=== PATIENT | female | born 1960 | race Asian ===

== ENCOUNTER 2025-02-21 15:41 | Emergency (ER) | payer MEDICAID, SELFPAY ==
[2025-02-21 15:42] VITALS: BMI 22.8
--- NOTE | 2025-02-21 15:45 | EKG_ITS ---
[facility] Test Date: 2025-02-21 Pat Name: KING BLAKE Department: Room: - Gender: Female Registered Midwife: : 1960 Requested By: ED Temporary Provider Order Number: [id number] Reading MD: ED Temporary Provider Measurements Intervals [place] Rate: 92 P: 68 AL: 144 QRS: -15 QRSD: 80 T: 78 QT: 339 QTc: 419 Interpretive Statements SINUS RHYTHM POSSIBLE ANTERIOR MYOCARDIAL INFARCTION , OF INDETERMINATE AGE [30 ms Q WAVE IN V3/V4, OR R < 0.2 mV IN V4] Compared to ECG 08/29/2023 17:09:31 Atrial abnormality no longer present Left-axis deviation no longer present Myocardial infarct finding still present /store/S0/[id number]/ecg/[id number].pdf
[2025-02-21 15:58] VITALS: BP 161/85; PULSE 92; RESP 18; TEMP 36.3; O2SAT 96
--- NOTE | 2025-02-21 16:03 | PD.EDRME ---
Rapid Medical Screening Exam RME Arrival date/time: 02/21/25 15:41 Chief Complaint: Chest Pain Time Seen by Provider: 02/21/25 15:59 RME Narrative: 64-year-old female past medical history of diabetes, high cholesterol, hypertension, CAD unknown prior heart catheterization presents to the ER complaining of chest pain, lightheadedness for the past week along with 5 falls which is abnormal for her sent in by her PCP because the glucose was 415 in the clinic. I briefly performed a screening evaluation to initiate work-up and expedite care. Complete history, physical exam, and plan of care is deferred to the provider in the main ED. Exam: Head: Normocephalic, atraumatic. Respiratory: Normal effort. No respiratory distress or accessory muscle use. Neuro: Speech normal. Skin: Warm, dry, normal color. Psych: Pleasant. Normal affect. Cooperative. Clinical Impression: Hyperglycemia
--- NOTE | 2025-02-21 16:04 | XR_ITS ---
Upright PA and lateral chest 02/21/2025 at 412 Comparison 08/29/2023 INDICATION: Chest pain 2 weeks FINDINGS: There is mild osteoporosis in the skeleton lungs and pleural space are clear. There is slight cardiomegaly noted, the mediastinum appears normal IMPRESSION: 1. Moderate cardiomegaly is present unchanged. 2. Suspect mild generalized osteoporosis 3 otherwise negative chest
[2025-02-21 16:39] LABS: Basophils # (Auto) 0.0 Thou/mm3 (0.0-0.2); Basophils % (Auto) 0 % (0-2.5); Eosinophils # (Auto) 0.2 Thou/mm3 (0.0-0.5); Eosinophils % (Auto) 3 % (0-10); Hematocrit 37.6 % (36.0-46.0); Hemoglobin 11.9 g/dL (12.0-16.0); Immature Granulocytes Auto 0.02 Thou/mm3 (0.00-0.00); Lymphocytes # (Auto) 1.3 Thou/mm3 (1.0-4.8); Lymphocytes % (Auto) 21 % (10-50); Mean Corpuscular HGB Conc 31.6 g/dl (31.0-37.0); Mean Corpuscular Hemoglobin 29.8 pg (25.0-35.0); Mean Corpuscular Volume 94 fL (80-100); Monocytes # (Auto) 0.6 Thou/mm3 (0.0-0.8); Monocytes % (Auto) 10 % (0-12); Neutrophils # (Auto) 4.1 Thou/mm3 (1.8-7.7); Neutrophils % (Auto) 65 % (37-80); Nucleated Red Blood Cell # 0.00 Thou/mm3 (0.00-0.00); Nucleated Red Blood Cell % 0 /100 WBC (0); Platelet Count 177 Thou/mm3 (140-440); RDW Standard Deviation 46.6 fL (36.4-46.3); Red Blood Count 3.99 Miln/mm3 (4.00-5.20); White Blood Count 6.3 Thou/mm3 (3.6-11.0)
[2025-02-21 16:59] LABS: B-Type Natriuretic Peptide 225 pg/mL (0-100); INR 0.9 (0.9-1.3); Prothrombin Time 9.9 Seconds (9.0-12.2)
[2025-02-21 17:05] LABS: Alanine Aminotransferase 12 U/L (10-49); Albumin, Serum 4.2 gm/dL (3.4-4.8); Albumin/Globulin Ratio 1.7 (1.2-2.2); Alkaline Phosphatase 118 U/L (46-116); Anion Gap 10 (7-16); Aspartate Amino Transferase 13 U/L (0-34); BUN/Creatinine Ratio 16 Ratio (12-20); Bilirubin,Total 0.4 mg/dL (0.3-1.2); Blood Urea Nitrogen 16 mg/dL (9-23); Calcium 9.2 mg/dL (8.3-10.6); Calcium (Corrected) 9.2 mg/dL (8.5-10.1); Carbon Dioxide 28.9 mMol/L (20.0-31.0); Chloride 103 mMol/L (98-107); Creatinine (Component) 1.0 mg/dL (0.6-1.3); Estimated Creatinine Clearance 43.8 mL/min (>60); Globulin 2.5 gm/dL (2.3-3.5); Lipase 44 U/L (12-53); Potassium 5.2 mMol/L (3.4-5.1); Sodium 142 mMol/L (136-145); Total Protein 6.7 gm/dL (5.7-8.2); Troponin I < 0.020 ng/mL (0.0-0.045); eGFR > 60 See Note
[2025-02-21 17:15] LABS: Osmolality,Calculated 305 (275-295)
[2025-02-21 17:17] LABS: Glucose 482 mg/dL (74-106)
[2025-02-21 18:03] LABS: HCG,Qualitative Serum Positive
--- NOTE | 2025-02-21 18:29 | PD.EDCHEST ---
ED Chest Pain RME/HPI General Chief Complaint: Chest Pain Stated Complaint: CHEST PAIN, HIGH BLOOD PRESSURE Time Seen by Provider: 02/21/25 15:59 Arrival date/time: 02/21/25 15:41 RME / HPI RME / HPI narrative: 64-year-old female past medical history of diabetes, high cholesterol, hypertension, CAD unknown prior heart catheterization presents to the ER complaining of chest pain, lightheadedness for the past week along with 5 falls which is abnormal for her sent in by her PCP because the glucose was 415 in the clinic. I briefly performed a screening evaluation to initiate work-up and expedite care. Complete history, physical exam, and plan of care is deferred to the provider in the main ED. See MDM for Dr. Walker's HPI documentation. Related Data Home Medications ?Medication ?Instructions ?Recorded ?Confirmed carbidopa ER 50 mg-levodopa 200 mg 1 tab PO BID 08/30/23 09/09/23 tablet,extended release gabapentin 600 mg tablet 600 mg PO TID 08/30/23 09/09/23 pantoprazole 40 mg tablet,delayed 40 mg PO QDAY 08/30/23 09/09/23 release (Protonix) sitagliptin phosphate 50 1 tab PO BID 08/30/23 09/09/23 mg-metformin 1,000 mg tablet (Janumet) insulin detemir U-100 100 unit/mL 20 unit subcut DAILY 08/31/23 09/09/23 (3 mL) subcutaneous pen (Levemir FlexPen) Previous Rx's ?Medication ?Instructions ?Recorded apixaban 5 mg tablet (Eliquis) 5 mg PO BID 30 days #60 tabs 08/31/23 aspirin 81 mg tablet,delayed 81 mg PO QDAY 30 days #30 tabs 08/31/23 release atorvastatin 40 mg tablet 40 mg PO HS 30 days #30 tabs 08/31/23 blood-glucose sensor (Dexcom G7 #3 ea 08/31/23 Sensor device) blood-glucose,internist medical doctor md,cont #1 ea 08/31/23 (Dexcom G7 Manager Ccu) metoprolol succinate 25 mg 25 mg PO QDAY 30 days #30 tabs 08/31/23 tablet,extended release 24 hr Allergies Allergy/AdvReac Type Severity Reaction Status Date / Time hydrocodone Allergy Mild Dizziness Verified 02/21/25 15:41 acetaminophen AdvReac Severe Difficulty Verified 02/21/25 15:41 Breathing Review of Systems Review of Systems Systems Reviewed: All systems reviewed, normal except as documented Past Medical History Past Medical History NEUROLOGIC: Positive Parkinson's Disease (Dx'd 2 years ago) CARDIAC: Positive Cardiac Disorders and Hypertension; Negative Congestive Heart Failure RESPIRATORY: Negative Chronic Obstructive Pulmonary Disease (COPD) GASTROINTESTINAL: Positive Gastroesophageal Reflux Disease (Sometimes) GENITOURINARY: Negative Genitourinary Disorders or Renal Disease ENDOCRINE: Positive Diabetes Mellitus Type 2; Negative Diabetes Mellitus Type 1 HEMATOLOGIC: Negative Blood Disorders PSYCHO/SOCIAL: Negative Depression or Anxiety OTHER HISTORY: Positive Falls; Negative Anesthesia Reactions Surgical History SURGICAL: Positive Section Social History SMOKING STATUS: Never smoker SECOND HAND EXPOSURE: No ED Exam Narrative Physical exam: See [facility] for Dr. Walker's physical exam documentation. Course Course Course Narrative: CXR is ordered for determining the etiology of chest pain. Quality Measures none Orders Category Date Time Status Continuous EKG monitoring NOW Care 02/21/25 16:04 Active Continuous Pulse Oximetry NOW Care 02/21/25 16:04 Active EKG (ED ONLY) *Do not use* NOW Care 02/21/25 15:45 Completed EKG (ED ONLY) *Do not use* NOW Care 02/21/25 16:04 Completed EKG (ED Only) Stat Exams 02/21/25 15:45 Draft EKG (ED Only) Stat Exams 02/21/25 16:04 Ordered XR chest 2V Stat Exams 02/21/25 16:04 Completed B-Type Natriuretic Peptide Stat Lab 02/21/25 16:32 Completed Beta HCG,Quantitative Stat Lab 02/21/25 18:29 Ordered CBC Stat Lab 02/21/25 16:32 Completed Comprehensive Metabolic Panel Stat Lab 02/21/25 16:32 Completed HCG,Qualitative Serum Stat Lab 02/21/25 16:32 Completed INR [Prothrombin Time with INR] Stat Lab 02/21/25 16:32 Completed Lipase Stat Lab 02/21/25 16:32 Completed Troponin I Stat Lab 02/21/25 16:32 Completed Sodium Chloride 0.9% 1000 ml [Ns] 1,000 ml Med 02/21/25 16:04 Discontinued IV 999 mls/hr Vital Signs Vital signs: Vital Signs Temperature 97.4 F 02/21/25 15:58 Pulse Rate 92 02/21/25 15:58 Respiratory Rate 18 02/21/25 15:58 Blood Pressure 161/85 H 02/21/25 15:58 Pulse Oximetry (%) 96 02/21/25 15:58 Oxygen Delivery Method Room Air 02/21/25 15:58 Chest Pain MDM Narrative MDM Narrative:: This section includes all my notes and documentations, including HPI, PE, and ED course. Long Walker MD HPI: 64-year-old female ROS: All negative except as documented in HPI. Physical Exam: General: Alert and oriented. No acute distress when remaining still. Eyes: Conjunctivae and lids clear. ENT: No nasal congestion. Neck: Supple. Heart: RRR. Lungs: No respiratory distress. Good air movement. No rhonchi, wheezing, rales. Abdomen: Soft and nontender. Normal bowel sounds. No distension. No rebound or guarding. Back: No CVA tenderness. Skin: Warm and dry. Neuro: Alert and oriented X 3. I reviewed all diagnostic test results. My interpretation of the EKG is My interpretation of the chest x-ray is cardiomegaly. My review of the CT report is Blood tests and urine tests At this point, diagnoses include Treatment here included Significant improvement Not yet done: I discussed the case with our hospitalist. About the presentation and exam and diagnostics and treatments here. And need of further care in the hospital. Will accept the patient. Not yet done: Based on my best medical judgment, made decision no further evaluation or treatment indicated at this time. Patient understands and agrees to the discharge instructions customized and printed, see below. Long Walker MD Patient data External records reviewed:: [facility] previous records (Per chart review, patient was admitted here on 08/29/23 for elevated troponin.) Clinical information provided by:: patient Social determinants that could affect healthcare access:: none Patient has the following chronic illnesses:: Parkinson's, DM, HTN, HLD How is presenting disease/condition affected by chronic disease/condition?: exacerbated by Evaluation data The following diagnostics were reviewed and interpreted by me:: lab results, radiology exam(s) and EKG tracing(s) Lab and/or radiology exams considered but not ordered:: none Medications / Prescriptions Medications or Prescriptions considered but not ordered:: none Medication administrations:: Medication Administration History Discontinued Medications Sodium Chloride (Ns) 1,000 mls @ 999 mls/hr IV .Q1H1M ONE Stop: 02/21/25 17:04 Discharge Plan Prescriptions/Referrals Prescriptions/Med Rec: No Action gabapentin 600 mg Tablet 600 mg PO TID carbidopa-levodopa 50-200 mg Tablet Extended Release 1 tab PO BID pantoprazole [Protonix] 40 mg Tablet,Delayed Release (Dr/Ec) 40 mg PO QDAY Janumet 50-1,000 mg Tablet 1 tab PO BID aspirin 81 mg Tablet,Delayed Release (Dr/Ec) 81 mg PO QDAY 30 Days Qty: 30 2RF atorvastatin 40 mg tablet 40 mg PO HS 30 Days Qty: 30 2RF metoprolol succinate 25 mg tablet extended release 24 hr 25 mg PO QDAY 30 Days Qty: 30 2RF Eliquis 5 mg tablet 5 mg PO BID 30 Days Qty: 60 2RF Levemir FlexPen 100 unit/mL (3 mL) Insulin Pen 20 unit SUBCUT DAILY (DME) Dexcom G7 Sensor Device See Rx Instructions .Route Qty: 3 5RF Rx Instructions: As directed (DME) Dexcom G7 Manager Ccu Misc See Rx Instructions .Route Qty: 1 0RF Rx Instructions: As directed Referrals: Higinio Dickerson MD [Primary Care Provider, Family Practice] - In 1 week Patient/Caregiver Discharge Instructions Print Language: Luxem[place]ish
[2025-02-21 19:15] VITALS: BP 178/99; PULSE 90; RESP 17; TEMP 36.4; O2SAT 99
[2025-02-21 19:21] LABS: Beta HCG,Quantitative 9 mIU/mL (<5.0)
--- NOTE | 2025-02-21 19:21 | EDNOTE_ITS ---
ED Weakness RME/HPI General Chief complaint: Chest Pain Stated complaint: CHEST PAIN, HIGH BLOOD PRESSURE Time Seen by Provider: 02/21/25 15:59 Arrival date/time: 02/21/25 15:41 RME / HPI RME / HPI Narrative: 64-year-old female past medical history of diabetes, high cholesterol, hypertension, CAD unknown prior heart catheterization presents to the ER complaining of chest pain, lightheadedness for the past week along with 5 falls which is abnormal for her sent in by her PCP because the glucose was 415 in the clinic. I briefly performed a screening evaluation to initiate work-up and expedite care. Complete history, physical exam, and plan of care is deferred to the provider in the main ED. See MDM for Dr. Walker's HPI documentation. Exam: Head: Normocephalic, atraumatic. Respiratory: Normal effort. No respiratory distress or accessory muscle use. Neuro: Speech normal. Skin: Warm, dry, normal color. Psych: Pleasant. Normal affect. Cooperative. Impression: Hyperglycemia Related Data Home Medications ?Medication ?Instructions ?Recorded ?Confirmed carbidopa ER 50 mg-levodopa 200 mg 1 tab PO BID 09/09/23 tablet,extended release gabapentin 600 mg tablet 600 mg PO TID 08/30/2309/08 pantoprazole 40 mg tablet,delayed 40 mg PO QDAY 09/09/23 release (Protonix) sitagliptin phosphate 50 1 tab PO BID 08/30/23 mg-metformin 1,000 mg tablet (Janumet) insulin detemir U-100 100 unit/mL 20 unit subcut DAILY 08/31/23 09/09/23 (3 mL) subcutaneous pen (Levemir FlexPen) Previous Rx's ?Medication ?Instructions ?Recorded apixaban 5 mg tablet (Eliquis) 5 mg PO BID 30 days #60 tabs 08/31/23 aspirin 81 mg tablet,delayed 81 mg PO QDAY 30 days #30 tabs 08/31/23 release atorvastatin 40 mg tablet 40 mg PO HS 30 days #30 tabs 08/31/23 blood-glucose sensor (Dexcom G7 #3 ea 08/31/23 Sensor device) blood-glucose,financial planning advisor,cont #1 ea 08/31/23 (Dexcom G7 Physician Practice Coordinator) metoprolol succinate 25 mg 25 mg PO QDAY 30 days #30 t abs 08/31/23 tablet,extended release 24 hr cefdinir 300 mg capsule 300 mg PO BID #14 caps 02/21 Allergies Allergy/AdvReac Type Severity Reaction Status Date / Time hydrocodone Allergy Mild Dizziness Verified 02/21/25 15:41 acetaminophen AdvReac Severe Difficulty Verified 02/21/25 15:41 Breathing Review of Systems Review of Systems Systems Reviewed: All systems reviewed, normal except as documented ED Exam Narrative Physical exam: See MDM for Dr. Walker's HPI documentation. Course Course Course Narrative: CXR is ordered for determining the etiology of weakness. Quality Measures none Orders Category Date Time Status Bedside COVID-19 Antigen Test NOW Care 02/21/25 19:21 Completed Bedside Influenza A&B Antigen Test NOW Care 02/21/25 19:21 Completed Continuous EKG monitoring NOW Care 02/21/25 16:04 Completed Continuous Pulse Oximetry NOW Care 02/21/25 16:04 Completed EKG (ED ONLY) *Do not use* NOW Care 02/21/25 15:45 Completed EKG (ED ONLY) *Do not use* NOW Care 02/21/25 16:04 Completed Saline [Insert IV] NOW Care 02/21/25 19:21 Completed Straight [In and Out Catheter] X1 Care 02/21/25 19:[address] cervical spine wo con Stat Exams 02/21/25 19:[address] chest abdomen pelvis wo Stat Exams 02/21/25 19:[address] head/brain wo con Stat Exams 02/21/25 19:23 Completed EKG (ED Only) Stat Exams 02/21/25 15:45 Draft EKG (ED Only) Stat Exams 02/21/25 16:04 Ordered XR chest 2V Stat Exams 02/21/25 16:04 Completed B-Type Natriuretic Peptide Stat Lab 02/21/25 16:32 Completed Beta HCG,Quantitative Stat Lab 02/21/25 16:32 Completed Beta Hydroxybutyrate Stat Lab 02/21/25 19:44 Completed Bilirubin,Direct Stat Lab 02/21/25 19:44 Completed Blood Culture (Lab) Stat Lab 02/21/25 19:44 Received CBC Stat Lab 02/21/25 16:32 Completed CRP [C-Reactive Protein] Stat Lab 02/21/25 19:44 Completed Comprehensive Metabolic Panel Stat Lab 02/21/25 16:32 Completed HCG,Qualitative Serum Stat Lab 02/21/25 16:32 Completed Hemoglobin A1C [Glycohemoglobin w (eAG)] Stat Lab 02/21/25 16:32 Completed INR [Prothrombin Time with INR] Stat Lab 02/21/25 16:32 Completed Lactate (Lactic Acid) Stat Lab 02/21/25 19:44 Completed Lactic Acid, 3 HR Stat Lab 02/21/25 23:09 Completed Lipase Stat Lab 02/21/25 16:32 Completed Magnesium Stat Lab 02/21/25 19:44 Completed Procalcitonin Stat Lab 02/21/25 19:44 Completed Sed Rate (ESR) Stat Lab 02/21/25 16:32 Completed TSH [Thyroid Stimulating Hormone] Stat Lab 02/21/25 19:44 Completed Troponin I Stat Lab 02/21/25 16:32 Completed UA, C/S IF [Urinalysis, C/S if Indicated] Stat Lab 02/21/25 20:20 Completed Urine Culture Stat Lab 02/21/25 21:33 Ordered VBG [Venous Blood Gas] Stat Lab 02/21/25 19:44 Completed Insulin Regular Med 02/21/25 19:21 Discontinued 10 unit IV X1 ONE Ondansetron Inj [Zofran Inj] Med 02/21/25 19:21 Discontinued 4 mg IVP X1 ONE Sodium Chloride 0.9% 1000 ml [Ns] 1,000 ml Med 02/21/25 16:04 Discontinued IV 999 mls/hr cefTRIAXone/D5w 1gm IV premix [Rocephin/D5w 1gm IV Med 02/21/25 21:06 Discontinued premix] 1 gm in 50 ml IV X1 Vital Signs Vital signs: Vital Signs Temperature 97.4 F 02/21/25 15:58 Pulse Rate 92 02/21/25 15:58 Respiratory Rate 18 02/21/25 15:58 Blood Pressure 161/85 H 02/21/25 15:58 Pulse Oximetry (%) 96 02/21/25 15:58 Oxygen Delivery Method Room Air 02/21/25 15:58 Weakness MDM Narrative MDM Narrative:: This section includes all my notes and documentations, including HPI, PE, and ED course. Long Walker MD HPI: 64-year-old female with history of DM here with generalized weakness for about a week. Patient is normally ambulatory and independent. Has been using a cane for a week due to repeated falls. No headache. No syncopal episodes. No speech or visual impairment. No right-sided weakness or left-sided weakness. No neck pain or back pain. No chest pain or abdominal pain. No pain in arms or legs. No other complaints. ROS: All negative except as documented in HPI. Physical Exam: General: Alert and oriented. No acute distress. Eyes: Conjunctivae and lids clear. EOMI. PERRL. ENT: No signs of head trauma. Neck: Supple. No tenderness. Heart: RRR. Lungs: No respiratory distress. Good air movement. No rhonchi, wheezing, rales. Chest: No tenderness. Abdomen: Soft and nontender. Normal bowel sounds. No distension. No rebound or guarding. Back: No tenderness. Skin: Warm and dry. Neuro: Alert and oriented X 3. Cranial Nerves II-XII grossly intact. No peripheral motor deficits. Musculoskeletal: All major joints and bones are not tender with no limited ROM. I reviewed all diagnostic test results. My interpretation of the EKG is sinus rhythm with nonspecific ST-T changes. My interpretation of the chest x-ray is NAD. My review of the CT head report is NAD. My review of the CT cervical spine report is no fracture. My review of the CT chest abdomen pelvis report is: - Suspicious for acute appearing nondisplaced fracture right fourth rib anteriorly - Fracture fifth sacral segment nondisplaced Blood tests remarkable for Glu 42. UA remarkable for 4+ glucose, positive nitrite, positive leukocyte esterase, 22 RBC, 198 WBC, 1+ bacteria. COVID/Influenza negative. At this point, diagnoses include: Hyperglycemia Weakness Falls UTI (urinary tract infection) Fracture of right fourth rib (no pain, possiblly old) Sacral fracture (no pain, possiblly old) Treatment here included: IVF Regular insulin 10 unit IV Zofran 4 mg IV Rocephin 1 g V Significant improvement noted. Recommended more outpatient care. Based on my best medical judgment, made decision no further evaluation or treatment indicated at this time. Patient understands and agrees to the discharge instructions customized and printed, see below. Discharge instructions from Dr. Walker: 1. After extensive evaluation, there is no immediately life-threatening condition. Such as stroke or brain tumor or heart attack. Exact cause of you feeling weak and falling was not determined. Since you elected to go home instead of penitentiary rehabilitation, you are being discharged. 2. Main diagnoses today include: High sugar levels, Weakness, Falls, Urine Infection, Right 4th Rib Fracture (may be old, you don't have pain), and Sacral Fracture (may be old, you don't have pain). See attached handouts. 3. Continue working with your private doctors to lower your sugar levels. 4. Use your cane and continue to be physically active. Prolonged inactivity is terrible for your body. 5. Take Cefdinir for urine infection. 6. Eat regular nutritious meals. For good hydration, increase oral fluid and maintain clear urine. If dark or yellow, increase oral fluid. 7. See a private doctor on 02/22/2025 for recheck and further care and second opinion. Ask to review all test results and official radiology reports, to make sure you receive all necessary follow-ups and monitoring. To make sure there is no serious underlying heart condition, ask to help you get more tests for your heart that cannot be done here in the ER. Such as Holter Monitor (cardiac monitoring at home from a day to even a month), heart stress test (on treadmill or with medication), echocardiogram (imaging of your heart structures), heart catherization (checking for blockages in your heart arteries), and a referral to see a Program Coordinator Executive Education. Ask for help with better management of your diabetes. Ask for MRI imaging of the brain and referral to see neurologist to make sure there is no other serious underlying conditions. Ask for physical therapy at home and outpatient. 8. Seek immediate medical care with worsening or with any concerns. Long Walker MD Patient data External records reviewed:: [facility] previous records (Per chart review, patient was admitted here on 08/29/23 for elevated troponin.) Clinical information provided by:: patient Social determinants that could affect healthcare access:: none Patient has the following chronic illnesses:: DM, HTN, HLD How is presenting disease/condition affected by chronic disease/condition?: exacerbated by Evaluation data The following diagnostics were reviewed and interpreted by me:: lab results, radiology exam(s) and EKG tracing(s) (My interpretation of the EKG is: Sinus rhythm (92 bpm) with nonspecific ST-T changes. Long Walker MD) Lab and/or radiology exams considered but not ordered:: none Interpretation Summary: I reviewed all diagnostic test results. My interpretation of the EKG is sinus rhythm with nonspecific ST-T changes. My interpretation of the chest x-ray is NAD. My review of the CT head report is NAD. My review of the CT cervical spine report is no fracture. My review of the CT chest abdomen pelvis report is: - Suspicious for acute appearing nondisplaced fracture right fourth rib anteriorly - Fracture fifth sacral segment nondisplaced Blood tests remarkable for Glu 42. UA remarkable for 4+ glucose, positive nitrite, positive leukocyte esterase, 22 RBC, 198 WBC, 1+ bacteria. COVID/Influenza negative. Medications / Prescriptions Medications or Prescriptions considered but not ordered:: none Medication administrations:: Medication Administration History Discontinued Medications Sodium Chloride (Ns) 1,000 mls @ 999 mls/hr IV .Q1H1M ONE Stop: 02/21/25 17:04 Ceftriaxone Sodium/Dextrose (Rocephin/D5w 1gm Iv Premix) 1 gm in 50 mls @ 100 mls/hr IV X1 ONE Stop: 02/21/25 21:35 Last Infusion: 02/21/25 22:07 Dose: Infused Documented By: Admin: 02/21/25 21:18 Dose: 100 mls/hr Documented By: KIM Insulin Human Regular (Insulin Hum Regular 1 Unit/0.01 Ml (Per Unit)) 10 unit IV X1 ONE Stop: 02/21/25 19:22 Last Admin: 02/21/25 19:57 Dose: 10 unit Documented By: ANGIE Co-signed By: DEVANG Ondansetron HCl (Ondansetron Inj 2 Mg/Ml Inj 2 Ml) 4 mg IVP X1 ONE; Protocol Stop: 02/21/25 19:22 Last Admin: 02/21/25 19:58 Dose: 4 mg Documented By: ANGIE Treatment here included: IVF Regular insulin 10 unit IV Zofran 4 mg IV Rocephin 1 g V Consultations Consultation(s) initiated? (list below): No Diagnosis Weakness Differential Diagnosis: acute myocardial infarction, anemia, hypoglycemia, hypothyroidism, rhabdomyolysis, sepsis and dehydration Most likely diagnosis given after review of the tests above:: Hyperglycemia Weakness Falls UTI (urinary tract infection) Fracture of right fourth rib Sacral fracture Admission Indicated Admission indicated?: not indicated Explain why admission is indicated or not indicated:: With significant improvement and no condition needing emergent intervention, there was no indication for admission. Admission Request Was there a request for admission?: No Disposition Plan Disposition Plan: Discharge Discharge Attestation Discharge Attestation: The patient and all family members were given an opportunity to ask questions and understood the discharge instructions. Discharge instructions specifically effects, indications for sooner follow up or return to the emergency department, and the expected course of current diagnosis. Patient condition: Stable Discharge Plan Plan Patient Disposition: HOME (Self Care) Prescriptions/Referrals Prescriptions/Med Rec: New cefdinir 300 mg capsule 300 mg PO BID Qty: 14 0RF No Action gabapentin 600 mg Tablet 600 mg PO TID carbidopa-levodopa 50-200 mg Tablet Extended Release 1 tab PO BID pantoprazole [Protonix] 40 mg Tablet,Delayed Release (Dr/Ec) 40 mg PO QDAY Janumet 50-1,000 mg Tablet 1 tab PO BID aspirin 81 mg Tablet,Delayed Release (Dr/Ec) 81 mg PO QDAY 30 Days Qty: 30 2RF atorvastatin 40 mg tablet 40 mg PO HS 30 Days Qty: 30 2RF metoprolol succinate 25 mg tablet extended release 24 hr 25 mg PO QDAY 30 Days Qty: 30 2RF Eliquis 5 mg tablet 5 mg PO BID 30 Days Qty: 60 2RF Levemir FlexPen 100 unit/mL (3 mL) Insulin Pen 20 unit SUBCUT DAILY (DME) Dexcom G7 Sensor Device See Rx Instructions .Route Qty: 3 5RF Rx Instructions: As directed (DME) Dexcom G7 Physician Practice Coordinator Misc See Rx Instructions .Route Qty: 1 0RF Rx Instructions: As directed Referrals: Higinio Dickerson MD [Primary Care Provider, Family Practice] - In 1 week Problem List Clinical Impression: Hyperglycemia, Weakness, Falls, UTI (urinary tract infection), Fracture of right fourth rib, Sacral fracture Patient/Caregiver Discharge Instructions Discharge Activity: activity as tolerated Education Materials: ED Coccyx or Sacrum Contusion, ED Diabetes with High Blood Sugar, ED Rib Fracture, ED CYSTITIS Female Adult, ED Weakness (Uncertain Cause), ED Fall Dizziness Weakn Balance Additional Instructions: Discharge instructions from Dr. Walker: 1. After extensive evaluation, there is no immediately life-threatening condition. Such as stroke or brain tumor or heart attack. Exact cause of you feeling weak and falling was not determined. Since you elected to go home instead of penitentiary rehabilitation, you are being discharged. 2. Main diagnoses today include: High sugar levels, Weakness, Falls, Urine Infection, Right 4th Rib Fracture (may be old, you don't have pain), and Sacral Fracture (may be old, you don't have pain). See attached handouts. 3. Continue working with your private doctors to lower your sugar levels. 4. Use your cane and continue to be physically active. Prolonged inactivity is terrible for your body. 5. Take Cefdinir for urine infection. 6. Eat regular nutritious meals. For good hydration, increase oral fluid and maintain clear urine. If dark or yellow, increase oral fluid. 7. See a private doctor on 02/22/2025 for recheck and further care and second opinion. Ask to review all test results and official radiology reports, to make sure you receive all necessary follow-ups and monitoring. To make sure there is no serious underlying heart condition, ask to help you get more tests for your heart that cannot be done here in the ER. Such as Holter Monitor (cardiac monitoring at home from a day to even a month), heart stress test (on treadmill or with medication), echocardiogram (imaging of your heart structures), heart catherization (checking for blockages in your heart arteries), and a referral to see a Program Coordinator Executive Education. Ask for help with better management of your diabetes. Ask for MRI imaging of the brain and referral to see neurologist to make sure there is no other serious underlying conditions. Ask for physical therapy at home and outpatient. 8. Seek immediate medical care with worsening or with any concerns. Print Language: Salvadorean Stand Alone Forms: Fabiana Award Info., Patient Portal Info Letter
--- NOTE | 2025-02-21 19:23 | XR_ITS ---
Examination: CT cervical spine without contrast 2-D sagittal reconstructions 2-D coronal reconstructions 3-D reconstructions. Exam date and time: February 21, 2025, 2039 hours INDICATIONS: Ground-level fall today with injury to the neck, neck pain CTDI:vol (mGy) 12.9 DLP: (mGycm) 260 Technique: Multiple 2 mm axial sections of the cervical spine have been obtained. The coronal and sagittal reconstructions have been obtained. 3-D reconstructions have been obtained. Low dose protocols were performed. One or more of the following dose reduction techniques were used; automated exposure control, adjustment of the mA and/or KV according to patient size, use of iterative reconstruction technique. Findings: Axial sections demonstrate intact base of the skull. C1 exhibit satisfactory relationship to the odontoid. No acute cervical vertebral body fracture seen. Alignment posterior spinous processes satisfactory. Impression: No acute cervical fracture.
--- NOTE | 2025-02-21 19:23 | XR_ITS ---
Examination: CT brain head without contrast. 2-D sagittal coronal reconstructions Date and time of exam: February 21, 2025, 2038 hours INDICATIONS: Syncopal injury today, patient fell with injury to the head, head pain CTDI: vol (mGy): 45.6 DLP: (mGycm): 873 Technique: Multiple CT axial sections of the brain have been obtained, 5 mm slice thickness. Contrast has not been administered. 2-D sagittal, coronal reconstructions have been obtained Low dose protocols were performed. One or more of the following dose reduction techniques were used; automated exposure control, adjustment of the mA and/or KV according to patient size, use of iterative reconstruction technique. Findings: No significant ventricular enlargement. Left frontal encephalomalacia, left occipital lobe encephalomalacia Intra-axial or extra-axial hemorrhage density is not seen. No mass effect or midline shift Basal cisterns are not remarkable. Fourth ventricle is midline. Cranial vault intact. Impression: Negative for acute hemorrhage, mass effect or midline shift As clinically warranted, consider brain MRI follow-up, stroke protocol
--- NOTE | 2025-02-21 19:23 | XR_ITS ---
Examination: CT chest, without intravenous contrast. CT abdomen, without intravenous contrast. CT pelvis, without intravenous contrast. 2-D sagittal and coronal reconstructions. 3-D reconstructions. Date and time of exam: February 21, 2025, 2041 hours INDICATIONS: Syncopal episode today, patient fell with injury to the chest and abdomen, chest pain abdomen pain CTDI vol (mgy) 9.45 DLP (MGycm) 6.1 Technique: Multiple CT images, 3.0 mm slice thickness, obtained chest, abdomen, pelvis, with the high-resolution 64 slice scanner.. Sagittal and coronal 2-D reconstructions are obtained. 3-D reconstructions Low dose protocols were performed. One or more of the following dose reduction techniques were used; automated exposure control, adjustment of the mA and/or KV according to patient size, use of iterative reconstruction technique. Findings: Thoracic aorta pulmonary arteries appear intact on this noncontrast study No hemopericardium No pneumothorax pulmonary contusion or hemothorax The manubrium and the body of the sternum intact Thoracic lumbar segments intact Fracture fifth sacral segment, sagittal image 114, which may be old, clinical correlation advised Acute appearing nondisplaced fracture right fourth rib anteriorly No visualized liver splenic or renal laceration Gallbladder wall appears thickened Abdominal aorta intact, no free blood in the abdomen No pancreatic mass Negative for pneumoperitoneum Normal appendix Atrophic calcified uterus Urinary bladder intact Iliac bones and hips appear intact IMPRESSION: Thoracic aorta pulmonary arteries intact No hemopericardium, pneumothorax, pulmonary contusion or hemothorax Suspicious for acute appearing nondisplaced fracture right fourth rib anteriorly No abdominal parenchymal laceration Abdominal aorta intact No free blood in the abdomen Fracture fifth sacral segment nondisplaced which may be old, clinical correlation advised
[2025-02-21] MEDS: INSULIN HUM REGULAR 1 UNIT/0.01 ML (PER UNIT) 10 UNIT IV (19:57)
[2025-02-21] MEDS: ONDANSETRON INJ 2 MG/ML INJ 2 ML 4 MG IVP (19:58)
[2025-02-21 20:02] LABS: Lactate (Lactic Acid) 2.6 mMol/L (0.4-2.0)
[2025-02-21 20:03] LABS: Base Excess, Venous 3 (-3-3); O2 Saturation, Venous 44 % (96-97); PCO2, Venous 54 mmHg (36-56); PO2, Venous 25 mmHg (15-58); pH, Venous 7.35 (7.33-7.66)
[2025-02-21 20:05] LABS: Beta Hydroxybutyrate 0.2 mmol/L (<0.6)
[2025-02-21 20:17] LABS: Sed Rate (ESR) 22 mm/hr (0-30)
[2025-02-21 20:33] LABS: Bilirubin,Direct 0.1 mg/dL (0.0-0.3); C-Reactive Protein 1.1 mg/dL (0.0-0.9); Magnesium 1.6 mg/dL (1.6-2.6); Procalcitonin < 0.04 ng/ml (0.0-0.49); Thyroid Stimulating Hormone 0.91 uIU/mL (0.55-4.78)
[2025-02-21 20:35] LABS: Collection Type, Urine Clean Catch
[2025-02-21 20:49] LABS: Bacteria,Urine 1+; Bilirubin,Urine Negative (Negative); Blood,Urine Trace (Negative); Clarity,Urine Turbid (Clear/Hazy); Color,Urine Lt-Yellow (Lt Yel-Yel); Culture Indicated,Urine Contaminated; Glucose, Urine 4+ (Negative); Ketones,Urine Negative (Negative); Leukocyte Esterase,Urine Positive (Negative); Nitrite,Urine Positive (Negative); PH,Urine 6.5 (5.0-7.0); Protein,Urine Trace (Neg - Trace); RBC,Urine 22 /hpf (0-3); Specific Gravity,Urine 1.035 (1.001-1.035); Squamous Epithelial Cell,Urine 19 /hpf (0-5); Urobilinogen,Urine Negative mg/dL (0.0-1.0); WBC,Urine 198 /hpf (0-5)
[2025-02-21] MEDS: cefTRIAXone/D5w 1gm IV premix 1 GM/50 ML BAG IV (21:18)
[2025-02-21 21:33] VITALS: BP 144/69; PULSE 83; RESP 16; O2SAT 100
[2025-02-21 21:59] LABS: Glucose Estimated Average 263 mg/dL (80-131); Hemoglobin A1C 10.8 % Hgb (4.8-6.0)
[2025-02-21 23:00] LABS: Reflex Lactate? Y
[2025-02-21 23:23] LABS: Lactic Acid, 3 HR 1.9 mMol/L (0.4-2.0)
[2025-02-21 23:35] VITALS: BP 133/82; PULSE 76; RESP 18; TEMP 36.7; O2SAT 98
== END 2025-02-21 23:36 | disposition home or self-care (01) ==
PROVIDERS: Physician Assistant; Emergency Provider Emergency Medicine; PCP Family Medicine
DX: E11.65 Type 2 diabetes mellitus with hyperglycemia (principal); N39.0 Urinary tract infection, site not specified; S22.31XA Fracture of one rib, right side, initial encounter for closed fracture; S32.10XA Unspecified fracture of sacrum, initial encounter for closed fracture; W19.XXXA Unspecified fall, initial encounter; R55 Syncope and collapse; S09.90XA Unspecified injury of head, initial encounter; S19.9XXA Unspecified injury of neck, initial encounter; R94.31 Abnormal electrocardiogram [ECG] [EKG]; I10 Essential (primary) hypertension; R29.6 Repeated falls; Z79.84 Long term (current) use of oral hypoglycemic drugs; Z79.4 Long term (current) use of insulin
CPT/HCPCS: 36415; 70450; 71046; 71250; 72125; 74176; 80053; 81001; 82010; 82248; 82803; 83036; 83605; 83690; 83735; 83880; 84145; 84443; 84484; 84702; 84703; 85025; 85610; 85652; 86140; 87040; 87077; 87086; 87186; 87502; 87635; 93005; 96365; 96375; 99284; J0696; J1815; J2405